=== PATIENT | female | born 1985 | race Caucasian/White ===

== ENCOUNTER → 2016-08-14 | Outpatient (CLI) | payer OTHER ==
[~2016-08-14] MED LIST: ADDERALL 30 MG30 MG PO; AUGMENTIN 875875 MG PO; BACTRIM DS TAB1 EACH PO; NORCO 5-325 TA1 EACH PO; PRENATAL PO; TRANDATE 200 M200 M1 PO
== END ==
LOC: ULTRA 11:19
DX: N83.201 Unspecified ovarian cyst, right side (principal)